=== PATIENT | female | born 1955 | race Caucasian/White ===

== ENCOUNTER 2017-04-08 09:35 | Emergency (ER) | payer OTHER, BC ==
[2017-04-08] MEDS ORDERED: Acetaminophen/HYDROcodone 325-5 MG Tab PO ONE (09:59)
--- NOTE | 2017-04-08 11:25 | EDM.PDOC ---
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: - Past Surgical History Female Surgical History: Reports: Section, Mastectomy Social & Family History - Tobacco Use Smoking Status *Q: Never Smoker Second Hand Smoke Exposure: No - Caffeine Use Caffeine Use: Reports: Coffee, Soda - Recreational Drug Use Recreational Drug Use: No Review of Systems - Review of Systems Review Of Systems: See Below Constitutional: Reports: No Symptoms Respiratory: Reports: No Symptoms Cardiovascular: Reports: No Symptoms GI/Abdominal: Reports: No Symptoms Genitourinary: Reports: Vaginal Bleeding (Post vaginal delivery, no clots) Musculoskeletal: Reports: Leg Pain (Posterior calf pain) Skin: Reports: No Symptoms Neurological: Reports: No Symptoms Psychiatric: Reports: No Symptoms Course - Vital Signs Last Recorded V/S: Last Vital Signs Temp 97.5 F 04/08/17 09:56 Pulse 113 H 04/08/17 09:56 Resp 16 04/08/17 09:56 BP 138/99 H 04/08/17 09:56 Pulse Ox 99 04/08/17 09:56 - Orders/Labs/Meds Meds: Medications Discontinued Medications Generic Name Dose Route Start Last Admin Trade Name Freq PRN Reason Stop Dose Admin Hydrocodone Bitart/Acetaminophen 2 tab 04/08/17 09:59 04/08/17 10:17 [place] 325-5 Mg PO 04/08/17 10:00 2 tab ONETIME ONE Administration Hydromorphone HCl 0.5 mg 04/08/17 11:42 04/08/17 11:48 Dilaudid IM 04/08/17 11:43 0.5 mg ONETIME ONE Administration Departure - Departure Disposition: Home, Self-Care 01 Clinical Impression: Fall Qualifiers: Encounter type: initial encounter Qualified Code(s): W19.XXXA - Unspecified fall, initial encounter Radius and ulna distal fracture Qualifiers: Encounter type: initial encounter Fracture type: closed Laterality: left Qualified Code(s): S52.502A - Unspecified fracture of the lower end of left radius, initial encounter for closed fracture; S52.602A - Unspecified fracture of lower end of left ulna, initial encounter for closed fracture; S52.602A - Unspecified fracture of lower end of left ulna, initial encounter for closed fracture - Discharge Information Prescriptions: Hydrocodone/Acetaminophen [Hydrocodon-Acetaminophen 5-325] 1 - 2 each PO Q6HR PRN #20 tablet PRN Reason: Pain Referrals: PCP,None [Primary Care Provider] - Johnny Capone MD [Physician] - Forms: ED Department Discharge Additional Instructions: Ice your wrist for 15 minutes every other hour while awake for 2 days. Elevate your arm for the next couple of days. Take the hydrocodone as needed for pain. Dr Capone will see your tomorrow at the OR. 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 <Robin Saini - Last Filed: 04/08/17 12:33> ED HPI GENERAL MEDICAL PROBLEM - General Source of Information: Reports: Patient History Limitations: Reports: No Limitations - History of Present Illness INITIAL COMMENTS - FREE TEXT/NARRATIVE: The patient slipped on the ice this morning and she landed on her left wrist. She did not hit her head or hurt her neck. She is right handed. There is obvious deformity to her left wrist. She has no other injuries. Onset: Sudden Duration: Minutes: Location: Reports: Upper Extremity, Left (wrist) Quality: Reports: Sharp Severity: Moderate Improves with: Reports: Immobilization Worsens with: Reports: Movement Context: Reports: Activity (Slipped on the ice) Associated Symptoms: Reports: No Other Symptoms Review of Systems - Review of Systems Review Of Systems: See Below Constitutional: Reports: No Symptoms Eyes: Reports: No Symptoms Ears: Reports: No Symptoms Nose: Reports: No Symptoms Mouth/Throat: Reports: No Symptoms Respiratory: Reports: No Symptoms Cardiovascular: Reports: No Symptoms GI/Abdominal: Reports: No Symptoms Genitourinary: Reports: No Symptoms Musculoskeletal: Reports: Other (Left wrist pain) Skin: Reports: No Symptoms ED EXAM, GENERAL - Physical Exam Exam: See Below Exam Limited By: No Limitations General Appearance: Alert, No Apparent Distress Ears: Normal External Exam Nose: Normal Inspection Head: Atraumatic, Normocephalic Neck: Normal Inspection Respiratory/Chest: No Respiratory Distress, Lungs Clear, Normal Breath Sounds Cardiovascular: Regular Rate, Rhythm, No Edema, No Murmur GI/Abdominal: Soft, Non-Tender, No Organomegaly, No Mass Back Exam: Normal Inspection Extremities: Other (Obvious deformity of the left wrist with pain upon palpation. Good sensation and capillary refill distally.) ED TRAUMA EXTREMITY PROCEDURES - Splinting Left Upper Extremity Splint Site: Left wrist Pre-Procedure NV Status: Normal Post-Procedure NV Status: Normal Splint Material: Fiberglass Splint Design: Sugar Tong Applied & Form Fitted By: Provider Provider Post-Splint Application NV Check: NV Status Normal, Good Position Complications: No Course - Re-Assessments/Exams Free Text/Narrative Re-Assessment/Exam: 04/08/17 12:05 I ordered hydrocodone X 2 and an x-ray. Her x-ray showed a distal radius and ulna. The radius is displaced. I called Dr Capone and he came to see the patient. He wanted me to splint her wrist after putting her hand in a finger cuff. He will take her to surgery tomorrow. Departure - Departure Time of Disposition: 12:30 Condition: Good
--- NOTE | 2017-04-08 11:30 | CR ---
Left wrist: Four views of the left wrist were obtained. Comparison: No previous study. Mildly comminuted distal radial fracture is seen. Distal epiphyseal fragment of the radius is displaced medially as well as posterior impaction being seen causing dorsal tilt of the distal radial articular margin. Displaced ulnar styloid avulsion fracture is noted. Soft tissue swelling is seen. Bony structures are osteopenic. No additional fracture is identified. Impression: 1. Displaced and impacted distal left radial fracture with mild comminution. Displaced ulnar styloid avulsion fracture. 2. Soft tissue swelling. Diagnostic code #3
[2017-04-08] MEDS ORDERED: HYDROmorphone 0.5 MG/0.5 ML Syringe IM ONE (11:42)
--- NOTE | 2017-04-08 22:10 | PCM.CONS ---
H&P History of Present Illness - General Date of Service: 04/08/17 Source of Information: Patient, Provider - History of Present Illness Initial Comments - Free Text/Narative: This is a 61 year old female [place]. Patient states she was there for work and slipped on the ice and landed on her left wrist with an out stretched hand. Patient had immediate pain and deformity and was brought to the ED for evaluation. Patient denies any previous pain or injury to the left wrist or hand. She denies any other injury at this time. She states she is right hand dominant. 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 Exam - Exam Exam: See Below - Vital Signs Vital Signs: Last Vital Signs Temp 36.4 C 04/08/17 09:56 Pulse 113 H 04/08/17 09:56 Resp 16 04/08/17 09:56 BP 138/99 H 04/08/17 09:56 Pulse Ox 99 04/08/17 09:56 Weight: 63.503 kg - Exam Lungs: Normal Respiratory Effort Cardiovascular: Regular Rate Physical Exam Comments:: LUE: no tenderness to left clavicle or shoulder, full elbow motion to flex/ext with no tenderness to palpation, obvious deformity noted to left wrist with shortening and radial deviation, able to flex/ext the IP joint of the thumb, flex and ext all other fingers, abduct and adduct the fingers, neurovascularly intact to the radial, median ,ulnar nerve distribution with a 2+ distal radial pulse Consult PN Assessment/Plan Problem List Initiated/Reviewed/Updated: Yes Plan: A: Displaced left distal radius fracture P: At this time I discussed with the patient that this fracture is in need of a reduction with either casting or surgical fixation. At this time I went into detail into the risks and benefits of both including early mobilization with surgical fixation and the risks of surgery. At this time after discussing with the patient and family we decided that she would like to proceed with open reduction internal fixation of left distal radius fracture and any indicated procedures. Patient had the risks, benefits, complications, and alternatives discussed. She will be NPO at midnight for the procedure tomorrow. Patient will sign consents before surgery. She was placed in a splint by the ED and is to contact us today if there is further concerns. Patient will ice and elevate over night . All her questions were sought and answered at the visit.
== END 2017-04-08 12:56 | disposition home or self-care (01) ==
LOC: JD.ED 09:35
DX: S52.502A Unspecified fracture of the lower end of left radius, initial encounter for closed fracture (principal); S52.602A Unspecified fracture of lower end of left ulna, initial encounter for closed fracture; Z88.2 Allergy status to sulfonamides; W19.XXXA Unspecified fall, initial encounter
CPT/HCPCS: 29125; 73110; 96372; 99284; A9270; J1170; 99283-25

== ENCOUNTER → 2017-04-09 | Day surgery (SDC) | payer OTHER, BC ==
[~2017-04-09] MED LIST: Acetaminophen/HYDROcodone 325-5 MG Tab PO ONE; Albuterol 0.083% 2.5 MG/3 ML Neb Soln NEB PRN; Dexamethasone 4 MG/ML 5 ML MDV ONE; HYDROmorphone 0.5 MG/0.5 ML Syringe IVPUSH PRN; HYDROmorphone 1 MG/ML Syringe ONE; Lactated Ringers 1,000 ML IV SCH; Lidocaine 1% 4 ML ONE; Lidocaine 1%/Sod Bicarbonate in NS 8.4% 1 ML Syringe IV PRN; Midazolam 1 MG/ML 2 ML SDV ONE; Ondansetron 4 MG/2 ML SDV IVPUSH PRN; Ondansetron 4 MG/2 ML SDV ONE; Propofol 200 MG/20 ML SDV ONE; Sodium Chloride 0.9% 10 ML Syringe FLUSH PRN; ceFAZolin 1 GM Vial ONE; diphenhydrAMINE 50 MG/ML SDV IVPUSH PRN; fentaNYL 100 MCG/2 ML SDV IVPUSH PRN; fentaNYL 100 MCG/2 ML SDV ONE
--- NOTE | 2017-04-09 09:19 | PCM.PREANE ---
Preanesthetic Assessment - Anesthesia/Transfusion/Family Hx Anesthesia History: Prior Anesthesia Without Reaction Family History of Anesthesia Reaction: No Transfusion History: Prior Transfusion Without Reaction Intubation History: Unknown - Review of Systems General: No Symptoms Pulmonary: No Symptoms Cardiovascular: No Symptoms Gastrointestinal: No Symptoms (Occasional GERD) Neurological: No Symptoms, Headache (migraines) Other: Reports: None - Physical Assessment NPO Status Date: 04/08/17 NPO Status Time: 23:59 Pulse: 61 O2 Sat by Pulse Oximetry: 96 Respiratory Rate: 16 Blood Pressure: 118/79 Temperature: 37.3 C Height: 1.63 m Weight: 67.132 kg ASA Class: 2 Mental Status: Alert & Oriented x3 Dentition: Reports: Normal Dentition, [place] Thyro-Mental Finger Breadths: 3 Mouth Opening Finger Breadths: 3 ROM/Head Extension: Full Lungs: Clear to Auscultation, Normal Respiratory Effort Cardiovascular: Regular Rate, Regular Rhythm, No Murmurs - Allergies Allergies/Adverse Reactions: Allergies Allergy/AdvReac Type Severity Reaction Status Date / Time silver Allergy Rash Verified 04/08/17 15:54 [From Tegaderm AG Mesh] Sulfa (Sulfonamide Allergy Rash Verified 04/08/17 10:01 Antibiotics) - Anesthesia Plan Pre-Op Medication Ordered: None - Acknowledgements Anesthesia Type Planned: General Anesthesia Pt an Appropriate Candidate for the Planned Anesthesia: Yes Alternatives and Risks of Anesthesia Discussed w Pt/Guardian: Yes Pt/Guardian Understands and Agrees with Anesthesia Plan: Yes PreAnesthesia Questionnaire HEENT History: Reports: None Cardiovascular History: Reports: None Respiratory History: Reports: None 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: Musculoskeletal History: Reports: None Neurological History: Reports: None Psychiatric History: Reports: None Endocrine/Metabolic History: Reports: None Hematologic History: Reports: None Immunologic History: Reports: None Oncologic (Cancer) History: Reports: Breast Dermatologic History: Reports: None - Past Surgical History Female Surgical History: Reports: Section, Mastectomy - SUBSTANCE USE Smoking Status *Q: Never Smoker Second Hand Smoke Exposure: No Recreational Drug Use History: No - HOME MEDS Home Medications: Home Meds Hydrocodone/Acetaminophen [Hydrocodon-Acetaminophen 5-325] 1 - 2 each PO Q6HR PRN #40 tablet 04/09/17 [Rx] - CURRENT (IN HOUSE) MEDS Current Meds: Current Medications Lactated Ringer's (Ringers, Lactated) 1,000 mls @ 125 mls/hr IV ASDIRECTED BOBBI Stop: 04/09/17 23:00 Lidocaine/Sodium Bicarbonate (Buffered Lidocaine 1% In Ns 8.4%) 0.25 ml IV ONETIME PRN PRN Reason: Prior to IV Start Stop: 04/09/17 16:00 Sodium Chloride (Saline Flush) 10 ml FLUSH ASDIRECTED PRN PRN Reason: Keep Vein Open Stop: 04/09/17 18:00
[2017-04-09] MEDS: Bupivacaine 0.25% 30 ML SDV ONE ×2 (10:37→10:56)
--- NOTE | 2017-04-09 11:22 | PCM.POSTAN ---
POST ANESTHESIA ASSESSMENT - MENTAL STATUS Mental Status: Alert - VITAL SIGNS Pulse Rate: 77 SaO2: 91 Resp Rate: 10 Blood Pressure: 134/79 Temperature: 36.7 C - RESPIRATORY Respiratory Status: Respiratory Rate WNL, Airway Patent, O2 Saturation Stable, Supplemental Oxygen - CARDIOVASCULAR CV Status: Pulse Rate WNL, Blood Pressure Stable - GASTROINTESTINAL GI Status: No Symptoms - POST OP HYDRATION Hydration Status: Adequate & Stable
--- NOTE | 2017-04-09 13:42 | PCM48HPAN ---
Post Anesthesia Note - EVALUATION WITHIN 48HRS OF ANESTHETIC Vital Signs in Normal Range: Yes Patient Participated in Evaluation: Yes Respiratory Function Stable: Yes Airway Patent: Yes Cardiovascular Function Stable: Yes Hydration Status Stable: Yes Pain Control Satisfactory: Yes Nausea and Vomiting Control Satisfactory: Yes Mental Status Recovered: Yes
--- NOTE | 2017-04-09 14:07 | CR ---
Left wrist: 12 fluoroscopic spot views were obtained of the left wrist. Study obtained utilizing C-arm device. Comparison: Previous left wrist study of 04/08/17. Study shows reduction of previous distal radial fracture. Final films show placement of plate and screws. Fracture within the ulnar styloid process shows better alignment than on prior study. Fluoroscopy time given as 27.5 seconds. Impression: 1. Reduction and fixation of previously noted distal left radial fracture. Diagnostic code #2
--- NOTE | 2017-04-20 07:26 | PCM.OPNOTE ---
- General Post-Op/Procedure Note Date of Surgery/Procedure: 04/09/17 Operative Procedure(s): open reduction internal fixation of left distal radius fracture Pre Op Diagnosis: left distal radius fracture Post-Op Diagnosis: Same Anesthesia Technique: General LMA, Local Primary Surgeon: Johnny Capone Anesthesia Provider: Francheska Parra Tent Assembler: Jennifer Maldonado in mLs: 5 Complications: None Condition: Good
--- NOTE | 2017-04-20 08:19 | OR ---
DATE OF OPERATION: 04/09/2017 SURGEON: Johnny Capone MD OPERATION PERFORMED: Open reduction and internal fixation of left distal radius fracture. PREOPERATIVE DIAGNOSIS: Left extra-articular distal radius fracture. POSTOPERATIVE DIAGNOSIS: Left extra-articular distal radius fracture. ANESTHESIA: General LMA with local. ANESTHESIA PROVIDER: Francheska Parra CRNA. SHRIMP POND LABORER: Jennifer Maldonado PA-C. ESTIMATED BLOOD LOSS: Less than 5 mL. COMPLICATIONS: None. CONDITION: Stable. DESCRIPTION OF PROCEDURE: The patient was identified in the preop holding area. Proper site was marked and identified by the surgeon. The patient was taken back to the operating theater, where after adequate anesthesia, the patient's left upper extremity had a nonsterile tourniquet applied and was then sterilely prepped and draped in the usual sterile fashion. OR-wide time-out was performed. The patient received 2 grams of IV Ancef. At this time, the left upper extremity was exsanguinated. Tourniquet was insufflated to 225 mmHg. Standard volar approach of Angel was then made and centered over the FCR tendon. The FCR tendon sheath was then opened, and the tendon was retracted ulnarly to protect the median nerve. At this time, the floor of the tendon sheath was opened and was taken down to the pronator quadratus. The pronator quadratus was then elevated off the distal radius. Fracture site was identified. Fracture hematoma was removed. At this time, a provisional reduction was done and a K-wire was placed through the radial styloid to hold provisional reduction. At this time, a [place] distal radial volar locking plate, under C-arm fluoroscopy, was placed and found to be in good position. At this time, a reduction was also undertaken and was found to be adequately anatomically reduced on both AP and lateral views. A nonlocking screw was then placed in the shaft to hold the plate and then starting distally, 2.7 locking screws were placed in the distal fracture fragment. It was found to have adequate cheondoism of volar tilt as well as radial height on both the AP and lateral views. At this time, screw holes were then filled distally and then nonlocking screws were placed proximally. At this time, it had adequate cheondoism of all parameters of the distal radius on both the AP and lateral views. The DRUJ was then tested and found to be stable. At this time, adequate saline was then irrigated through the wound. 3-0 Vicryl was used for closure of the tendon sheath as well as subcutaneous tissues and 4-0 Monocryl was used for closure of the skin. The patient had a sterile soft dressing as well as the splint placed, and was sent to the PACU in a stable condition. MMODAL /[id number]
== END | disposition home or self-care (01) ==
LOC: JD.SDS 08:47
PROVIDERS: ATTEND Orthopaedic Surgery
DX: S52.552A Other extraarticular fracture of lower end of left radius, initial encounter for closed fracture (principal); W19.XXXA Unspecified fall, initial encounter; Y92.520 Airport as the place of occurrence of the external cause; Y99.8 Other external cause status; Z88.2 Allergy status to sulfonamides; Z91.09 Other allergy status, other than to drugs and biological substances; Z79.899 Other long term (current) drug therapy
CPT/HCPCS: 25607; 76000; 87641; A9270; C1713; C1776; J0690; J1100; J1170; J2250; J2405; J3010; J3490; J7120; 01830; J2704